=== PATIENT | female | born 2000 | race Caucasian/White ===

== ENCOUNTER 2022-10-07 16:02 | Emergency (ER) | payer BC, SELFPAY ==
[2022-10-07 16:40] VITALS: BP 128/80; PULSE 64; RESP 17; TEMP 36.6; O2SAT 98; BMI 22.6
== END 2022-10-07 19:16 | disposition left against medical advice (07) ==
PROVIDERS: Emergency Provider Emergency Medicine
CPT/HCPCS: 99281